=== PATIENT | female | born 1935 | race Caucasian/White ===

== ENCOUNTER 2018-03-23 15:44 | Observation (INO) | payer OTHER, BC ==
[2018-03-23] MEDS ORDERED: NS 1,000 ML IV ONE (15:56)
--- NOTE | 2018-03-23 16:03 | EDPHY ---
H & P Time Seen by Provider: 03/23/18 15:45 HPI/ROS: CHIEF COMPLAINT: Weakness, hypotension HISTORY OF PRESENT ILLNESS: The patient is an 82-year-old female with a history a of left knee and back pain. Her orthopedist Dr. Mei injected her lower back with steroids 2 days ago and performed radiofrequency nerve ablation on her left knee yesterday. She only receive local anesthetics. The patient is a poor surgical candidate because her for history of coronary artery disease. 4-5 hours after the procedure she began to feel nauseous and vomited. She has also had 1-2 episodes of diarrhea today. Her daughter gave her Zofran and Imodium. She has not had any more episodes of vomiting or diarrhea. No blood in either. Daughter was concerned however because on the home blood pressure monitor she was getting a systolic pressure of 60. Patient seemed weak. When paramedics arrived she states that her blood pressure was immediately 120 systolic and the patient was more alert. She states that the patient was very angry and did not want to come to the hospital. Patient reportedly had abdominal pain earlier today but does not now. Severity: Moderate Modifying factors: None REVIEW OF SYSTEMS: Constitutional: denies: chills, fever, recent illness, recent injury EENTM: denies: blurred vision, double vision, nose congestion Respiratory: denies: cough, shortness of breath Cardiac: denies: chest pain, irregular heart rate, lightheadedness, palpitations Gastrointestinal/Abdominal: See HPI Genitourinary: denies: dysuria, frequency, hematuria, pain Musculoskeletal: denies: joint pain, muscle pain Skin: denies: lesions, rash, jaundice, bruising Neurological: denies: headache, numbness, paresthesia, tingling, dizziness, weakness Hematologic/Lymphatic: denies: blood clots, easy bleeding, easy bruising Immunologic/allergic: denies: HIV/AIDS, transplant 10 systems reviewed and negative except as noted EXAM: GENERAL: Well-appearing, well-nourished and in no acute distress. HEAD: Atraumatic, normocephalic. EYES: Pupils equal round and reactive to light, extraocular movements intact, sclera anicteric, conjunctiva are normal. ENT: TMs normal, nares patent, oropharynx clear without exudates. Moist mucous membranes. NECK: Normal range of motion, supple without lymphadenopathy or JVD. LUNGS: Breath sounds clear to auscultation bilaterally and equal. No wheezes rales or rhonchi. HEART: Regular rate and rhythm without murmurs, rubs or gallops. ABDOMEN: Soft, nontender, normoactive bowel sounds. No guarding, no rebound. No masses appreciated. BACK: No CVA tenderness, no spinal tenderness, step-offs or deformities EXTREMITIES: Normal range of motion, no pitting or edema. No clubbing or cyanosis. NEUROLOGICAL: Cranial nerves II through XII grossly intact. Normal speech, normal gait. 5/5 strength, normal movement in all extremities, normal sensation , normal reflexes PSYCH: Normal mood, normal affect. SKIN: Warm, dry, normal turgor, no visible rashes or lesions. Source: Patient Exam Limitations: No limitations - Medical/Surgical History Hx Asthma: No Hx Chronic Respiratory Disease: No Hx Diabetes: No Hx Cardiac Disease: No Hx Renal Disease: No Hx Cirrhosis: No Hx Alcoholism: No Hx HIV/AIDS: No Hx Splenectomy or Spleen Trauma: No Other PMH: CHF, appy, R knee replacement, hysterectomy. - Family History Significant Family History: No pertinent family hx - Social History Smoking Status: Former smoker Alcohol Use: Sober Drug Use: None Constitutional: Initial Vital Signs Temperature (C) 37.1 C 03/23/18 15:44 Heart Rate 65 03/23/18 15:44 Respiratory Rate 16 03/23/18 15:44 Blood Pressure 114/47 L 03/23/18 15:44 O2 Sat (%) 93 03/23/18 15:44 O2 Delivery Mode Nasal Cannula O2 (L/minute) 3 Allergies/Adverse Reactions: iodine Allergy (Severe, Verified 03/23/18 18:30) cardiac arrest Sulfa (Sulfonamide Antibiotics) Allergy (Verified 03/23/18 18:30) rxn as a child Home Medications: Medication Instructions Recorded Acetaminophen [Tylenol ES 500 mg 500 mg PO TID@,15,20 11/01/15 (*)] Ascorbic Acid [Vitamin C 500 mg 500 mg PO DAILY 11/01/15 (*)] Herbals/Supplements -Info Only 1 ea PO DAILY 11/01/15 Pantoprazole Sodium [Protonix 40mg 40 mg PO DAILY 11/01/15 (*)] morphINE SR [MS Contin/Oramorph SR 30 mg PO TID@,15,11/01/15 30 mg (*)] Hydrocodone/Acetaminophen [[place] 1 each PO TID@,,03/23/18 7.5-325 Tablet] Ibuprofen [Motrin (*)] 200 - 400 mg PO TID PRN 03/23/18 Lidocaine 5% [Lidoderm 5% Patch] 1 ea TD DAILY 03/23/18 Lisinopril [Zestril 10 mg (*)] 10 mg PO DAILY 03/23/18 Metoprolol Succinate Xr [Toprol Xl 25 mg PO DAILY 03/23/18 25 mg (*)] Rosuvastatin Calcium [Crestor] 10 mg PO DAILY 03/23/18 Triamcinolone 0.1% [Triamcinolone 1 chandu TP DAILY 03/23/18 0.1% Cream (*)] Medical Decision Making - Diagnostics EKG Interpretation: An EKG obtained and was read and documented in trace view. Please see trace view for full reading and report. Sinus rhythm, no acute ischemic changes ED Course/Re-evaluation: The patient is feeling better. She is still slightly hypotensive compared to her baseline. She has some renal insufficiency likely from dehydration. I spoke with her daughter about admission and they are agreeable. 6:00 p.m. I spoke with Dr. Dominguez who will admit to the medical service. Differential Diagnosis: Partial list of the Differential diagnosis considered include but were not limited to; dehydration, gastritis and although unlikely based on the history and physical exam, I also considered obstruction, ischemia, volvulus, diverticulitis. - Data Points Laboratory Results: Laboratory Results 03/23/18 16:04 03/23/18 16:04 03/23/18 03/23/18 03/23/18 17:15 16:04 16:04 WBC 7.03 10^3/uL 10^3/uL (3.80-9.50) RBC 3.67 10^6/uL L 10^6/uL (4.18-5.33) Hgb 11.5 g/dL L g/dL (12.6-16.3) Hct 36.0 % L % (38.0-47.0) MCV 98.1 fL fL (81.5-99.8) MCH 31.3 pg pg (27.9-34.1) MCHC 31.9 g/dL L g/dL (32.4-36.7) RDW 13.1 % % (11.5-15.2) Plt Count 180 10^3/uL 10^3/uL (150-400) MPV 9.6 fL fL (8.7-11.7) Neut % (Auto) 60.3 % % (39.3-74.2) Lymph % (Auto) 23.8 % % (15.0-45.0) Story % (Auto) 9.4 % % (4.5-13.0) Eos % (Auto) 5.5 % % (0.6-7.6) Baso % (Auto) 0.4 % % (0.3-1.7) Nucleat RBC Rel Count 0.0 % % (0.0-0.2) Absolute Neuts (auto) 4.24 10^3/uL 10^3/uL (1.70-6.50) Absolute Lymphs (auto) 1.67 10^3/uL 10^3/uL (1.00-3.00) Absolute Monos (auto) 0.66 10^3/uL 10^3/uL (0.30-0.80) Absolute Eos (auto) 0.39 10^3/uL 10^3/uL (0.03-0.40) Absolute Basos (auto) 0.03 10^3/uL 10^3/uL (0.02-0.10) Absolute Nucleated RBC 0.00 10^3/uL 10^3/uL (0-0.01) Immature Gran % 0.6 % % (0.0-1.1) Immature Gran # 0.04 10^3/uL 10^3/uL (0.00-0.10) Sodium 136 mEq/L mEq/L (135-145) Potassium 5.5 mEq/L H mEq/L (3.5-5.2) Chloride 104 mEq/L mEq/L (97-110) Carbon Dioxide 27 mEq/l mEq/l (22-31) Anion Gap 5 mEq/L L mEq/L (6-14) BUN 48 mg/dL H mg/dL (7-23) Creatinine 1.9 mg/dL H mg/dL (0.6-1.0) Estimated GFR 25 Glucose 94 mg/dL mg/dL (70-100) Calcium 9.0 mg/dL mg/dL (8.5-10.4) Urine Color YELLOW Urine Appearance CLEAR Urine pH 6.0 (5.0-7.5) Ur Specific [place] 1.014 (1.002-1.030) Urine Protein NEGATIVE (NEGATIVE) Urine Ketones NEGATIVE (NEGATIVE) Urine Blood NEGATIVE (NEGATIVE) Urine Nitrate NEGATIVE (NEGATIVE) Urine Bilirubin NEGATIVE (NEGATIVE) Urine Urobilinogen 2.0 EU H EU (0.2-1.0) Ur Leukocyte Esterase NEGATIVE (NEGATIVE) Urine Glucose NEGATIVE (NEGATIVE) Medications Given: Discontinued Medications Sodium Chloride (Ns) 1,000 mls @ 0 mls/hr IV EDNOW ONE; Wide Open PRN Reason: Protocol Stop: 03/23/18 15:57 Last Admin: 03/23/18 16:05 Dose: 1,000 mls Departure - Departure Disposition: [facility] Inpatient Acute Clinical Impression: Gastroenteritis, Renal insufficiency, Dehydration Condition: Fair
--- NOTE | 2018-03-23 16:10 | CPEKG ---
Test Reason : OPEN Blood Pressure : / mmHG Vent. Rate : 054 BPM Atrial Rate : 055 BPM P-R Int : 167 ms QRS Dur : 095 ms QT Int : 419 ms P-R-T Axes : 072 063 049 degrees QTc Int : 398 ms Sinus rhythm Confirmed by Justin Giarrd ([id number]) on 03/23/2018 4:09:30 PM Referred By: Confirmed By:Justin Girard
[2018-03-23 16:17] LABS: PLATELET COUNT 180 10^3/uL (150-400)
[2018-03-23] MEDS ORDERED: ACETAMINOPHEN 325 MG TAB PO PRN (18:42)
[2018-03-23] MEDS ORDERED: ONDANSETRON 4 MG/2 ML VIAL IVP PRN (18:42)
[2018-03-23] MEDS ORDERED: PROMETHAZINE HCL 25 MG/ML INJ IVP PRN (18:42)
[2018-03-23] MEDS ORDERED: ONDANSETRON DISINTEGRATING 4 MG TAB PO PRN (18:42)
[2018-03-23] MEDS: morphINE SR 30 MG TAB PO SCH (19:57)
[2018-03-23] MEDS: HYDROCODONE/APAP 10/325 TAB PO SCH (19:57)
[2018-03-23] MEDS: ACETAMINOPHEN 500 MG TAB PO SCH (19:58)
--- NOTE | 2018-03-23 20:09 | GHP ---
DATE OF ADMISSION: 03/23/2018 The patient is a pleasant 82-year-old female with a history of chronic knee pain, congestive heart fa ilure, chronic pain on continuous narcotics, who presents with nausea, vomiting, and diarrhea. She h ad an epidural steroid injection to her spine for low back pain as well as an ablation of a nerve in her knee, as she has chronic osteoarthritis with bone on bone and she has decided against a knee repl acement. Following the procedure, she had an episode of vomiting yesterday and then today she had an episode of diarrhea. She has not taken antibiotics in recent memory. She continued to take her blo od pressure medicines. Her daughter, who is a FINISH PATCHER, took her blood pressure a couple times and it was about 70/30, became alarmed and brought her in the emergency department. When I speak with the matt ent, she is alert and conversant, although her daughter does most of the talking. She denies fever, chills, hematemesis, coffee-ground emesis or bright red blood per rectum. REVIEW OF SYSTEMS: A complete 10-point review of systems is conducted and negative except as noted i n the HPI. PAST MEDICAL HISTORY: 1. Continuous pain, on continuous narcotics. 2. Osteoarthritis. 3. Obstructive sleep apnea. 4. Coronary artery disease. 5. Diastolic dysfunction. 6. History of acute kidney injury. 7. TR and pulmonary hypertension. 8. Nocturnal hypoxia. 9. History of pulmonary embolus. 10. History of Clostridium difficile. ALLERGIES: Iodine and sulfa. HOME MEDICATIONS: Ibuprofen, lisinopril, Tylenol, vitamin C, [place] 7.5/325, lidocaine patch, Toprol- XL, morphine 30 three times daily, pantoprazole, rosuvastatin, triamcinolone. SOCIAL HISTORY: Lives with her daughter. No tobacco. No alcohol. FAMILY HISTORY: Parents . PHYSICAL EXAM: VITAL SIGNS: Temp 37, blood pressure 114/47, pulse 65, breathing 16 times a minute, 93% on 3 L. GENERAL: No acute distress. Chronically ill-appearing. HEENT: Sclerae anicteric. Or opharynx clear. Mucous membranes moist. NECK: Supple without lymphadenopathy or JVD. LUNGS: Chandni r to auscultation bilaterally. HEART: S1, S2. Not tachycardic. ABDOMEN: Soft. There is no rebou nd or guarding. LOWER EXTREMITIES: Without edema. SKIN: Shows clean injection sites on her left k nee and lower back. NEUROLOGIC: Nonfocal. LABS: White count 7, hematocrit 36, which is about her baseline. Platelets are 180,000. Sodium 136 , potassium 5.5, chloride 104, bicarb 27; BUN 48, creatinine 1.9; her baseline is about 30 and 1; glu cose 94. UA is unremarkable. EKG interpreted by me shows sinus at 54 with normal axis and intervals . The QRS appears slightly wide, but actually is not. I discussed the case with Dr. Justin Girard. ASSESSMENT/PLAN: 82-year-old female with likely viral gastroenteritis, acute kidney injury. 1. Viral gastroenteritis. I do not think this is procedure related given she has diarrhea and nause a. We will send a gastrointestinal pathogen panel. Hold her lisinopril. Hold her nonsteroidal anti -inflammatory drugs. Provide intravenous fluids and antiemetics. 2. Acute kidney injury. This is hypovolemia in the setting of nonsteroidal anti-inflammatory drugs and an angiotensin-converting enzyme inhibitor. We will hold nonsteroidal anti-inflammatory drugs an d angiotensin-converting enzyme inhibitor. Continue IV fluids and follow. 3. History of coronary artery disease. We will follow. 4. Recent steroid injections and nerve ablation. Unremarkable physical exam. We will follow. 5. Disposition. Observation status. /[id number]/MODL
[2018-03-23] MEDS: NS 1,000 ML IV SCH (22:04)
[2018-03-24] MEDS: HYDROCODONE/APAP 10/325 TAB PO SCH ×2 (05:12→14:45)
[2018-03-24] MEDS: morphINE SR 30 MG TAB PO SCH ×2 (05:12→14:45)
[2018-03-24] MEDS: ACETAMINOPHEN 500 MG TAB PO SCH ×2 (05:13→14:45)
[2018-03-24] MEDS: NS 1,000 ML IV SCH (05:13)
[2018-03-24] MEDS ORDERED: ASCORBIC ACID 500 MG TAB PO SCH (09:00)
[2018-03-24] MEDS ORDERED: PANTOPRAZOLE SODIUM 40 MG TAB PO SCH (09:00)
[2018-03-24] MEDS ORDERED: LIDOCAINE 4%/MENTHOL 1% PATCH TD SCH (09:00)
[2018-03-24] MEDS ORDERED: METOPROLOL SUCCINATE XR 25 MG TAB PO SCH (09:00)
[2018-03-24] MEDS ORDERED: TRIAMCINOLONE 0.1% 15 GM CRTUBE TP SCH (09:00)
[2018-03-24] MEDS ORDERED: Herbals/Supplements -Info Only PO SCH (09:00)
[2018-03-24] MEDS ORDERED: ROSUVASTATIN CALCIUM 10 MG TAB PO SCH (09:00)
--- NOTE | 2018-03-24 09:44 | ASMTCMCOM ---
CM Note CM Note Notes: Chart reviewed 82 year old female admitted via ED for concerns of hypotension and TJ. She has has a viral gastrointestinal illness. Lives with her daughter who is a TIMING INSPECTOR. Needs to be determined. Plan: TBD Date Signed: 03/24/2018 09:44 AM Electronically Signed By:Anna Hernandez RN
[2018-03-24 12:43] VITALS: BP 153/73
--- NOTE | 2018-03-24 13:21 | ASMTCMCOM ---
CM Note CM Note Notes: Patient plan of care reviewed in am rounds. Patient kidney function returned to normal after hydration. She has been cleared to discharge and will go home with her daughter for unknown period of time. They decline HHC at present but I did advise them that if they felt she needed it to return to living independently, Dr. Fuentes at at [facility] could order HHC for them. CM available should other needs arise. Plan: DC to home with family. Date Signed: 03/24/2018 01:21 PM Electronically Signed By:Anna Hernandez RN
--- NOTE | 2018-03-24 14:54 | ASMTLACE ---
LACE Length of stay for Answers: Less than 1 day current admission Comorbidities - select Answers: Congestive heart failure all that apply Coronary Artery Disease Mild liver or renal disease Score: 6 Date Signed: 03/24/2018 02:53 PM Electronically Signed By:Anna Hernandez RN
[2018-03-24] MEDS ORDERED: PATCH REMOVAL 1 EA PATCH TD SCH (21:00)
--- NOTE | 2018-03-25 20:37 | GDS ---
SERVICE: [facility] Hospitalist. CONSULTS: None. PROCEDURES: None. HISTORY OF PRESENT ILLNESS: H and P: Please see previously dictated note by Dr. Dominguez. ADMISSION DIAGNOSES: Viral gastroenteritis, acute kidney injury, history of coronary artery disease. DISCHARGE DIAGNOSES: Viral gastroenteritis, improved; acute kidney injury, improved; history of roset[place] nary artery disease. HOSPITAL COURSE: The speaker came into the emergency department because of nausea, vomiting, and mat rrhea. She had a recent epidural steroid injection into her spine (and an ablation of her knee). He r daughter noted that her blood pressure was 70/30 at home and brought her into the emergency departm ent for evaluation. During evaluation it was noted that her creatinine was 1.9 (1.3 is baseline), an d she was admitted for observation overnight for IV fluid hydration and recheck of acute kidney injur y. CRISTO inhibitors and nonsteroidals were stopped at admission. She was given IV fluids and IV antie metics. A GI panel was ordered. However, she did not have any further diarrhea during her hospitali zation, so a sample was not sent. The following morning/day of discharge, she was feeling much rasheed r. Had not had any diarrhea or vomiting. Vital signs were stable, and her creatinine was down to 1. 3. She and her daughter felt comfortable with discharge to home with a quick followup with [facility]. DISCHARGE MEDICATIONS: Her routine home medications were continued except that she was asked to stop lisinopril and also ibuprofen. She was given a prescription for Zofran to use as needed. DISCHARGE INSTRUCTIONS: She is advised to eat a bland diet but ensure hydration. She should follow up with her primary care provider, Dr. Thaddeus Fuentes, in [place] within 3-5 days. If at any time she has return of vomiting or diarrhea, fever, abdominal pain, or other low blood pressure or other conc erns, she should return immediately to the hospital to re-evaluate. Of note, she lives in [place] herself, but is planning to stay with her daughter for the next several days who lives very close [facility]. /[id number]/MODL
== END 2018-03-24 15:37 | disposition home or self-care (01) ==
LOC: EDUNIT# → F1N 19:34
PROVIDERS: ADMIT Internal Medicine; ATTEND Family Medicine
DX: A08.4 Viral intestinal infection, unspecified (principal); N17.9 Acute kidney failure, unspecified; I25.10 Atherosclerotic heart disease of native coronary artery without angina pectoris; I50.9 Heart failure, unspecified; E86.0 Dehydration; M54.5 Low back pain; G47.33 Obstructive sleep apnea (adult) (pediatric); Z96.651 Presence of right artificial knee joint; Z87.891 Personal history of nicotine dependence; Z86.711 Personal history of pulmonary embolism
CPT/HCPCS: 93005; 96360; 96361; 97165; 99285; G0378; G8987; G8988